=== PATIENT | female | born 1965 | race Hispanic/Latino ===

== ENCOUNTER 2020-05-26 05:49 | Inpatient (IN) | payer BC ==
[2020-05-21 13:24] LABS: BASOPHILS % (AUTO) 0.2 % (0.0-5.0); EOSINOPHILS % (AUTO) 1.3 % (0.0-8.0); LYMPHOCYTES % (AUTO) 20.7 % (21.0-51.0); MEAN CORPUSCULAR HEMOGLOBIN 25.5 pg (27.0-33.0); MEAN CORPUSCULAR HGB CONC 31.1 g/dL (32.0-36.0); MONOCYTES % (AUTO) 8.2 % (3.0-13.0); NEUTROPHILS % (AUTO) 69.1 % (40.0-77.0); PLATELET COUNT (AUTO) 279 K/uL (130-400); RED BLOOD CELL COUNT(AUTO) 5.73 MIL/uL (4.00-5.50); RED CELL DISTRIBUTION WIDTH 15.5 % (11.0-15.5); WHITE BLOOD COUNT (AUTO) 8.8 K/uL (4.8-10.8)
[2020-05-26] VITALS (24 sets, daily range): BP systolic 106–166; BP diastolic 64–98
[~2020-05-26] VITALS: Ht 152.4 cm; Wt 146.2 kg
[2020-05-26] MEDS: CEFAZOLIN SODIUM 1 GM VIAL IVP SCH ×2 (05:00→07:08)
[~2020-05-26 05:49] MED LIST: BISOPROLOL PO; GLIM2TAB30 PO; LEVO100T12 PO
[2020-05-26] MEDS ORDERED: SODIUM CHLORIDE 0.9% 1000ML 1,000 ML IV ONE (06:02)
[2020-05-26] MEDS ORDERED: SUCCINYLCHOLINE CHLORIDE 20 MG/ML 10 ML VIAL ONE ×2 (06:11→06:13)
[2020-05-26] MEDS ORDERED: ROCURONIUM 10MG/1ML SYR 10 MG/ML ML ONE ×2 (06:11→07:42)
[2020-05-26] MEDS ORDERED: LIDOCAINE PF 2% 5ML ABBOJECT ONE (06:11)
[2020-05-26] MEDS ORDERED: ONDANSETRON HCL 4 MG/2 ML VIAL ONE (06:11)
[2020-05-26] MEDS ORDERED: PROPOFOL 10 MG/ML 20ML VIAL IV ONE (06:11)
[2020-05-26] MEDS ORDERED: MEPERIDINE-PF 25 MG/ML SYG ONE ×2 (06:12→10:08)
[2020-05-26] MEDS ORDERED: FENTANYL CITRATE PF 50 MCG/1 ML 2ML VIAL ONE (06:12)
[2020-05-26] MEDS ORDERED: FERR-82 PO (06:20)
[2020-05-26] MEDS ORDERED: BISO1TAB98 PO (06:20)
[2020-05-26] MEDS ORDERED: MIDAZOLAM HCL 1 MG/ML 2ML VIAL ONE (06:58)
[2020-05-26] MEDS ORDERED: NEOSTIGMINE 5MG/5ML SYR IV ONE ×2 (08:22→09:08)
[2020-05-26] MEDS ORDERED: GLYCOPYRROLATE 1 MG/5 ML SYRINGE ONE (08:22)
[2020-05-26] MEDS ORDERED: MEPERIDINE-PF 75 MG/ML SYG ONE (10:42)
[2020-05-26] MEDS ORDERED: BISACODYL 10 MG SUPP.RECT RC PRN (10:45)
[2020-05-26] MEDS ORDERED: ACETAMINOPHEN-CODEINE 300/30MG TAB PO PRN (10:45)
[2020-05-26] MEDS ORDERED: ONDANSETRON HCL 4 MG/2 ML VIAL IVP PRN (10:45)
[2020-05-26] MEDS ORDERED: IBUPROFEN 600 MG TABLET PO PRN (10:45)
[2020-05-26] MEDS ORDERED: PROMETHAZINE HCL 25 MG/ML 1ML AMPULE IM PRN (10:45)
[2020-05-26] MEDS: PROMETHAZINE HCL 25 MG/ML 1ML AMPULE IM PRN ×2 (10:47→16:04)
[2020-05-26] MEDS: MEPERIDINE-PF 75 MG/ML SYG IM PRN ×2 (10:47→16:05)
[2020-05-26] MEDS: INSULIN HUMULIN R 100 UNIT/ML 3ML SQ SCH ×3 (11:59→21:00)
--- NOTE | 2020-05-26 13:24 | NUR ---
DC PLAN WENT BY PATIENT ROOM ALREADY DOWN FOR PROCEDURE. AMADO WILL CONTINUE TO FOLLOW. Addendum: 05/26/20 at 1330 by WATSON GREGORIO RN CM Amended: Links added.
[2020-05-26] MEDS: LACTATED RINGERS 1000ML 1,000 ML IV SCH ×2 (18:45→21:54)
[2020-05-27 03:31] VITALS: BP 138/79
[2020-05-27] MEDS: LACTATED RINGERS 1000ML 1,000 ML IV SCH (05:54)
[2020-05-27] MEDS: INSULIN HUMULIN R 100 UNIT/ML 3ML SQ SCH ×4 (05:55→20:50)
[2020-05-27 06:15] LABS: HEMATOCRIT 42.2 % (36-48); MEAN CORPUSCULAR HEMOGLOBIN 25.5 pg (27.0-33.0); MEAN CORPUSCULAR VOLUME 82.3 fL (79-99); PLATELET COUNT (AUTO) 255 K/uL (130-400); RED BLOOD CELL COUNT(AUTO) 5.13 MIL/uL (4.00-5.50); RED CELL DISTRIBUTION WIDTH 15.8 % (11.0-15.5); WHITE BLOOD COUNT (AUTO) 14.4 K/uL (4.8-10.8)
--- NOTE | 2020-05-27 06:50 | NUR ---
BA[facility]UELOS CATH DISCONTINUED. PT INST TO CALL FOR ASSIST BEFORE GETTING OUT OF BED, VERBALIZED UNDERSTANDING. NO VAGINAL BLEEDING NOTED.
[2020-05-27 07:39] VITALS: BP 142/82
--- NOTE | 2020-05-27 08:00 | NUR ---
abdominal dressing removed, incision is dry and intact with graham, appiled telfa dressing. applied abdominal binder, assisted to the bathroom, voided 150ml, assisted to bedside chair. pt tolerated well. Addendum: 05/27/20 at 0933 by QUIQUE ROWAN RN Amended: Links added.
[2020-05-27] MEDS: SIMETHICONE 80 MG TAB.CHEW PO PRN ×3 (10:21→20:48)
[2020-05-27] MEDS: DOCUSATE SODIUM 100 MG CAP PO PRN ×2 (10:21→20:48)
--- NOTE | 2020-05-27 10:23 | NUR ---
ambulating in the hallway in steady gait Addendum: 05/27/20 at 1024 by QUIQUE ROWAN RN Amended: Links added.
[2020-05-27] MEDS ORDERED: HYDROCODONE/ACETAMINOPHEN 5/325 MG TAB PO PRN (11:30)
[2020-05-27] MEDS ORDERED: ACETAMINOPHEN-CODEINE 300/30MG TAB PO PRN (11:30)
[2020-05-27] MEDS ORDERED: BISACODYL 10 MG SUPP.RECT RC PRN (11:30)
[2020-05-27 12:05] VITALS: BP 125/74
--- NOTE | 2020-05-27 15:46 | NUR ---
DCP CM spoke to pt discussed dc plans. Pt is independent prior to surgery, lives at home with spouse. Denies any equipments/services. Feels safe to go back home, still drives and works, spouse able to assist with transportation and needs as necessary. DC plan to home once stable. CM to cont to follow up. Addendum: 05/27/20 at 1547 by KEKE CARMICHAEL LVN CM Amended: Links added.
[2020-05-27 16:27] VITALS: BP 148/80
[2020-05-27 19:22] VITALS: BP 115/78
[2020-05-27] MEDS: IBUPROFEN 800 MG TAB PO PRN (20:50)
[2020-05-27 23:18] VITALS: BP 114/70
[2020-05-28 03:23] VITALS: BP 116/69
[2020-05-28 07:14] VITALS: BP 139/76
[2020-05-28] MEDS: INSULIN HUMULIN R 100 UNIT/ML 3ML SQ SCH (07:30)
[2020-05-28] MEDS: DOCUSATE SODIUM 100 MG CAP PO PRN (09:28)
[2020-05-28] MEDS: SIMETHICONE 80 MG TAB.CHEW PO PRN (09:28)
[2020-05-28] MEDS: IBUPROFEN 800 MG TAB PO PRN (09:30)
--- NOTE | 2020-05-28 10:20 | NUR ---
pt is discharged. verbal and written discharge instructions given. informed of the follow up appointment. prescription given. informed to call her doctor for concerns. pt voiced understanding to all things discussed. Addendum: 05/28/20 at 1036 by QUIQUE ROWAN RN Amended: Links added.
--- NOTE | 2020-05-28 10:45 | NUR ---
pt is dismissed in stable condition, brought to private car via wheelchair Addendum: 05/28/20 at 1048 by QUIQUE ROWAN RN Amended: Links added.
== END 2020-05-28 10:45 | disposition home or self-care (01) | DRG 742 ==
LOC: DAHIP 05:49 → EDSTATUS 07:00 → WSH 10:30
PROVIDERS: ADMIT Obstetrics & Gynecology; ATTEND Obstetrics & Gynecology
PROC: 0WQF0ZZ Repair Abdominal Wall, Open Approach (ICD-10-PCS; 2020-05-26)
PROC: 0UT90ZZ Resection of Uterus, Open Approach (ICD-10-PCS; principal; 2020-05-26 06:53)
PROC: 0UT70ZZ Resection of Bilateral Fallopian Tubes, Open Approach (ICD-10-PCS; 2020-05-26 06:53)
PROC: 0UT20ZZ Resection of Bilateral Ovaries, Open Approach (ICD-10-PCS; 2020-05-26 06:53)
DX: N92.1 Excessive and frequent menstruation with irregular cycle (principal); Z68.44 Body mass index [BMI] 60.0-69.9, adult; D64.9 Anemia, unspecified; E66.01 Morbid (severe) obesity due to excess calories; K42.9 Umbilical hernia without obstruction or gangrene; I10 Essential (primary) hypertension; N73.6 Female pelvic peritoneal adhesions (postinfective); Z20.828 Contact with and (suspected) exposure to other viral communicable diseases; N85.00 Endometrial hyperplasia, unspecified; Z91.018 Allergy to other foods
CPT/HCPCS: 36415; 82948; 84703; 85025; 85027; 86850; 86900; 86901; A4344; C1769; G0378; J0330; J0690; J1815; J2001; J2175; J2250; J2405; J2550; J2704; J2710; J3010; J3490; J7030; J7120; U0003

== ENCOUNTER 2020-06-09 00:32 | Emergency (ER) | payer BC ==
[~2020-06-09 00:32] MED LIST changes: +BISO1TAB98 PO; -BISOPROLOL PO; +FERR-82 PO
== END 2020-06-09 01:37 | disposition home or self-care (01) ==
LOC: EDH 00:32
DX: T81.31XA Disruption of external operation (surgical) wound, not elsewhere classified, initial encounter (principal); Y83.8 Other surgical procedures as the cause of abnormal reaction of the patient, or of later complication, without mention of misadventure at the time of the procedure; Y92.89 Other specified places as the place of occurrence of the external cause
CPT/HCPCS: 99281

== ENCOUNTER 2020-07-21 00:32 | Emergency (ER) | payer BC ==
[2020-07-21 01:11] LABS: BILIRUBIN,URINE Negative (NEGATIVE); COLOR,URINE Yellow (YELLOW); GLUCOSE, URINE (UA) Negative (NEGATIVE); KETONES,URINE Negative (NEGATIVE); LEUKOCYTE ESTERASE ,URINE Large (NEGATIVE); NITRATE,URINE Negative (NEGATIVE); OCCULT BLOOD,URINE Large (NEGATIVE); PH,URINE 7.5 (5.0-8.0); PROTEIN,URINE Negative (NEGATIVE)
[2020-07-21] MEDS ORDERED: METOCLOPRAMIDE 10 MG/2 ML VIAL ONE (01:11)
[2020-07-21] MEDS ORDERED: ONDANSETRON HCL 4 MG/2 ML VIAL ONE (01:11)
[2020-07-21 01:12] LABS: APPEARANCE,URINE SLIGHTLY CLOUDY (CLEAR)
[2020-07-21 01:19] LABS: BASOPHILS % (AUTO) 0.3 % (0.0-5.0); EOSINOPHILS % (AUTO) 0.9 % (0.0-8.0); HEMATOCRIT 43.1 % (36-48); LYMPHOCYTES % (AUTO) 8.2 % (21.0-51.0); MEAN CORPUSCULAR HEMOGLOBIN 25.1 pg (27.0-33.0); MEAN CORPUSCULAR HGB CONC 31.1 g/dL (32.0-36.0); MEAN CORPUSCULAR VOLUME 80.9 fL (79-99); MONOCYTES % (AUTO) 4.2 % (3.0-13.0); NEUTROPHILS % (AUTO) 85.9 % (40.0-77.0); PLATELET COUNT (AUTO) 290 K/uL (130-400); RED BLOOD CELL COUNT(AUTO) 5.33 MIL/uL (4.00-5.50); RED CELL DISTRIBUTION WIDTH 15.5 % (11.0-15.5); WHITE BLOOD COUNT (AUTO) 11.7 K/uL (4.8-10.8)
[2020-07-21 01:30] LABS: POTASSIUM 4.5 mmol/L (3.5-5.1)
[2020-07-21 01:32] LABS: BACTERIA,URINE Moderate /HPF (None Seen)
[2020-07-21 01:35] LABS: ALBUMIN 3.2 g/dL (3.5-5.0); BILIRUBIN,TOTAL 0.4 mg/dL (0.2-1.0); TOTAL PROTEIN, SERUM 7.8 g/dL (6.0-8.3)
[2020-07-21] MEDS ORDERED: SODIUM CHLORIDE 0.9% 50 ML IV ONE (01:44)
[2020-07-21] MEDS ORDERED: CEFTRIAXONE SODIUM 2 GM VIAL ONE (01:44)
== END 2020-07-21 03:13 | disposition home or self-care (01) ==
LOC: EDH 00:32
DX: N10 Acute pyelonephritis (principal); E11.9 Type 2 diabetes mellitus without complications; I10 Essential (primary) hypertension; Z98.890 Other specified postprocedural states; Z90.710 Acquired absence of both cervix and uterus
CPT/HCPCS: 36415; 80053; 81001; 83605; 83690; 85025; 87077; 87088; 87186; 96374; 96375; 99284; J0696; J2405; J2765